=== PATIENT | male | born 1990 | race African-American/Black ===

== ENCOUNTER 2017-04-24 05:22 | Emergency (ER) | payer MEDICAID ==
[~2017-04-24] VITALS: Ht 180.3 cm; Wt 136.0 kg
[~2017-04-24 05:22] MED LIST: ALBU05 IH; ALBU6.7H2 IH; AMLO5TAB88; IBUP-2029 PO
[2017-04-24 06:54] LABS: HEMATOCRIT. 41.9 % (42.0-52.0); HEMOGLOBIN. 14.3 g/dL (14.0-18.0); MEAN CORPUSCULAR HEMOGLOBIN 27.6 pg (28.0-32.0); MEAN CORPUSCULAR VOLUME 80.9 fL (80.0-94.0); MEAN PLATELET VOLUME 9.2 fl (7.4-10.4); PLATELET 170 x1000/uL (130-400); RED BLOOD CELL COUNT 5.19 mill/uL (4.7-6.1); RED CELL DISTRIBUTION WIDTH 13.9 % (11.6-14.6)
[2017-04-24 07:08] LABS: CARBON DIOXIDE 25 mEq/L (21-32); CHLORIDE 109 mEq/L (98-107)
[2017-04-24 07:39] LABS: PLATELET ESTIMATE NORMAL
[2017-04-24 07:51] VITALS: BP 171/132
[2017-04-24] MEDS ORDERED: COLCHICINE 0.6MG TABLET PO ONE (09:45)
[2017-04-24] MEDS ORDERED: COLCHICINE 0.6MG TABLET PO SCH (11:00)
== END 2017-04-24 10:00 | disposition home or self-care (01) ==
LOC: ER 05:22
DX: M10.9 Gout, unspecified (principal); I10 Essential (primary) hypertension; R51 Headache; Z91.14 Patient's other noncompliance with medication regimen
CPT/HCPCS: 36415; 70450; 80053; 85025; 99285; Z7610

== ENCOUNTER 2018-11-27 04:27 | Inpatient (IN) | payer MEDICAID ==
[~2018-11-27] VITALS: Ht 180.3 cm; Wt 51.3 kg
[~2018-11-27 04:27] MED LIST changes: -ALBU6.7H2 IH; +ALBU6.7H9 IH; -AMLO5TAB88; +AMLO5TAB88 PO
[2018-11-27 05:34] LABS: HEMATOCRIT. 44.2 % (42.0-52.0); MEAN CORPUSCULAR HEMOGLOBIN 27.5 pg (28.0-32.0); MEAN CORPUSCULAR VOLUME 81.2 fL (80.0-94.0); MEAN PLATELET VOLUME 8.8 fl (7.4-10.4); PLATELET 186 x1000/uL (130-400); RED BLOOD CELL COUNT 5.45 mill/uL (4.7-6.1); RED CELL DISTRIBUTION WIDTH 14.9 % (11.6-14.6)
[2018-11-27 05:40] LABS: CHLORIDE 106 mEq/L (98-107)
[2018-11-27] MEDS ORDERED: ONDANSETRON HCL 4MG/2ML INJ IV STA (06:06)
[2018-11-27] MEDS ORDERED: MORPHINE SULFATE 4 MG/ML CPJ (NOT FOR IM USE) IV STA (06:06)
[2018-11-27] MEDS ORDERED: ASPIRIN 81MG TABLET PO ONE (06:15)
[2018-11-27] MEDS ORDERED: FUROSEMIDE 20MG/2ML VIAL IVP ONE (06:15)
[2018-11-27] MEDS ORDERED: NITROGLYCERIN OINT 1GM/INCH UDPKT TD ONE (06:15)
[2018-11-27] MEDS ORDERED: ALBUTEROL (0.083%) 2.5MG/3ML NEB HHN ONE (06:30)
[2018-11-27 06:54] LABS: ATYPICAL LYMPHOCYTES 1
[2018-11-27 06:55] LABS: PLATELET ESTIMATE NORMAL
[2018-11-27] MEDS ORDERED: ACETAMINOPHEN 325MG TABLET PO ONE (07:15)
[2018-11-27] MEDS ORDERED: MAGNESIUM/ALUMINUM HYDROXIDE/SIMETHICONE 30ML UDC PO PRN (07:30)
[2018-11-27] MEDS ORDERED: ZOLPIDEM TARTRATE 5MG TABLET PO PRN (07:30)
[2018-11-27] MEDS ORDERED: GUAIFENESIN 200MG/10ML SUGAR FREE UDC PO PRN (07:30)
[2018-11-27] MEDS ORDERED: NA PHOS,M-B/NA PHOS,DI-BA ENEMA 118ML PR PRN (07:30)
[2018-11-27] MEDS ORDERED: DOCUSATE SODIUM 100MG CAPSULE PO PRN (07:30)
[2018-11-27] MEDS ORDERED: LORAZEPAM 0.5MG TABLET PO PRN (07:30)
[2018-11-27] MEDS ORDERED: IPRATROPIUM/ALBUTEROL 0.5-3(2.5)MG/3ML NEB INH PRN (07:30)
[2018-11-27] MEDS ORDERED: ACETAMINOPHEN 325MG TABLET PO PRN (07:30)
[2018-11-27] MEDS ORDERED: ONDANSETRON HCL 4MG/2ML INJ IV PRN (07:30)
[2018-11-27 07:43] LABS: ETHANOL BLOOD < 10 mg/dL
[2018-11-27 07:46] LABS: LDL CHOLESTEROL 55 mg/dL (5-100)
[2018-11-27 07:48] LABS: HDL CHOLESTEROL 37 mg/dL (40-59)
[2018-11-27] MEDS: CLONIDINE 0.1MG TABLET PO PRN ×2 (07:48→13:17)
[2018-11-27] MEDS ORDERED: AMLODIPINE 10MG TABLET PO SCH (08:45)
[2018-11-27] MEDS ORDERED: LISINOPRIL 20MG TABLET PO SCH ×2 (08:45→21:00)
[2018-11-27] MEDS ORDERED: ASPIRIN 325MG EC TABLET PO NR (09:30)
[2018-11-27] MEDS: NITROGLYCERIN 0.4MG TABLET SL SL PRN ×2 (09:41→10:31)
[2018-11-27] MEDS: KETOROLAC 15MG/ML VIAL IV PRN ×3 (11:30→23:30)
[2018-11-27 13:00] VITALS: BP_SYST 136; BP_SYST 138; BP_DIAS 100
[2018-11-27 16:00] VITALS: BP 156/108
[2018-11-27] MEDS: FAMOTIDINE 20MG TABLET PO SCH ×2 (16:10→20:21)
[2018-11-27 19:57] LABS: CREATINE KINASE 53 IU/L (39-308)
[2018-11-27 19:58] LABS: CREATINE KINASE MB FRACTION < 1.0 ng/mL (0.5-3.6)
[2018-11-27 20:00] VITALS: BP 149/99
[2018-11-28] VITALS: BP 154/100
[2018-11-28 04:00] VITALS: BP 186/119
[2018-11-28] MEDS: CLONIDINE 0.1MG TABLET PO PRN (05:00)
[2018-11-28 05:07] VITALS: BP 186/119
[2018-11-28] MEDS: KETOROLAC 15MG/ML VIAL IV PRN (05:07)
[2018-11-28] MEDS ORDERED: AMLODIPINE 10MG TABLET PO SCH (09:00)
[2018-11-28] MEDS ORDERED: ASPIRIN 325MG EC TABLET PO SCH (09:00)
[2018-11-28] MEDS ORDERED: HYDROCHLOROTHIAZIDE 25MG TABLET PO SCH (09:45)
== END 2018-11-28 10:54 | disposition home or self-care (01) | DRG 199 ==
LOC: ER 04:27 → 7WST 06:32 → EDBEDREQTM 06:37 → EDBEDREQ 06:37 → ENRESERV 11:40
PROVIDERS: ADMIT Internal Medicine; ATTEND Internal Medicine
DX: I16.0 Hypertensive urgency (principal); E44.1 Mild protein-calorie malnutrition; R07.89 Other chest pain; E83.51 Hypocalcemia; E66.9 Obesity, unspecified; E83.52 Hypercalcemia; F12.10 Cannabis abuse, uncomplicated; J45.909 Unspecified asthma, uncomplicated; Z91.14 Patient's other noncompliance with medication regimen; Z68.1 Body mass index [BMI] 19.9 or less, adult; I10 Essential (primary) hypertension
CPT/HCPCS: 36415; 71045; 80061; 80320; 82550; 82553; 83036; 83880; 84484; 85379; 93005; 93970; 96374; 96375; 99285; C1893; J1885; J1940; J2270; J2405; J7611; J7620; G0480

== ENCOUNTER 2019-05-03 04:45 | Emergency (ER) | payer MEDICAID ==
[~2019-05-03] VITALS: Ht 180.3 cm; Wt 129.0 kg
[2019-05-03] MEDS ORDERED: LISI10TA5 PO (05:23)
[2019-05-03] MEDS ORDERED: HYDR25TA PO (05:24)
[2019-05-03] MEDS ORDERED: AMLODIPINE 5MG TABLET PO ONE (06:30)
[2019-05-03] MEDS ORDERED: LISINOPRIL 10MG TABLET PO ONE (06:30)
[2019-05-03] MEDS ORDERED: HYDROCHLOROTHIAZIDE 25MG TABLET PO ONE (06:30)
[2019-05-03 07:20] VITALS: BP 186/128
== END 2019-05-03 07:23 | disposition home or self-care (01) ==
LOC: ER 05:55
DX: I10 Essential (primary) hypertension (principal); Z76.0 Encounter for issue of repeat prescription
CPT/HCPCS: 99284

== ENCOUNTER 2019-09-19 03:42 | Emergency (ER) | payer MEDICAID ==
[~2019-09-19] VITALS: Ht 180.3 cm; Wt 131.8 kg
[~2019-09-19 03:42] MED LIST changes: +HYDR25TA PO; +LISI10TA5 PO
[2019-09-19] MEDS ORDERED: HYDROCHLOROTHIAZIDE 25MG TABLET PO ONE (06:15)
[2019-09-19] MEDS ORDERED: LISINOPRIL 10MG TABLET PO ONE (06:15)
[2019-09-19] MEDS ORDERED: AMLODIPINE 5MG TABLET PO ONE (06:30)
[2019-09-19 06:50] VITALS: BP 162/106
== END 2019-09-19 06:52 | disposition home or self-care (01) ==
LOC: ER 03:42
DX: I10 Essential (primary) hypertension (principal); J45.909 Unspecified asthma, uncomplicated; F12.10 Cannabis abuse, uncomplicated; F17.200 Nicotine dependence, unspecified, uncomplicated; Z76.0 Encounter for issue of repeat prescription; Z79.899 Other long term (current) drug therapy
CPT/HCPCS: 99284

== ENCOUNTER 2019-11-20 04:41 | Emergency (ER) | payer MEDICAID ==
[~2019-11-20] VITALS: Ht 170.2 cm; Wt 113.0 kg
[2019-11-20 05:36] VITALS: BP 169/110
== END 2019-11-20 05:37 | disposition home or self-care (01) ==
LOC: ER 04:41
DX: I10 Essential (primary) hypertension (principal); Z76.0 Encounter for issue of repeat prescription; G47.30 Sleep apnea, unspecified; R00.0 Tachycardia, unspecified; F12.10 Cannabis abuse, uncomplicated; Z79.899 Other long term (current) drug therapy
CPT/HCPCS: 99282; 99283

== ENCOUNTER 2020-01-09 04:41 | Emergency (ER) | payer MEDICAID ==
[~2020-01-09] VITALS: Ht 180.3 cm; Wt 177.0 kg
[2020-01-09] MEDS ORDERED: HYDROCHLOROTHIAZIDE 25MG TABLET PO ONE (06:45)
[2020-01-09] MEDS ORDERED: AMLODIPINE 5MG TABLET PO ONE (06:45)
[2020-01-09] MEDS ORDERED: LISINOPRIL 10MG TABLET PO SCH (06:45)
[2020-01-09 07:08] VITALS: BP 165/115
== END 2020-01-09 07:11 | disposition home or self-care (01) ==
LOC: ER 04:41
DX: I10 Essential (primary) hypertension (principal); F12.10 Cannabis abuse, uncomplicated; Z79.899 Other long term (current) drug therapy; Z76.0 Encounter for issue of repeat prescription
CPT/HCPCS: 99284

== ENCOUNTER 2020-07-09 15:59 | Emergency (ER) | payer MEDICAID ==
[~2020-07-09] VITALS: Ht 175.3 cm; Wt 128.0 kg
[2020-07-09 16:09] VITALS: BP 138/87
[2020-07-09] MEDS ORDERED: CEPHALEXIN 250MG CAPSULE PO ONE (17:45)
[2020-07-09] MEDS ORDERED: IBUPROFEN 600MG TABLET PO ONE (17:45)
[2020-07-09] MEDS ORDERED: ALBUTEROL (0.083%) 2.5MG/3ML NEB HHN STA (18:00)
[2020-07-09] MEDS ORDERED: IPRATROPIUM BROMIDE (0.02%) 0.5MG/2.5ML NEB HHN STA (18:00)
== END 2020-07-09 18:30 | disposition home or self-care (01) ==
LOC: ER 15:59
DX: L03.317 Cellulitis of buttock (principal); J45.909 Unspecified asthma, uncomplicated; I10 Essential (primary) hypertension; F12.10 Cannabis abuse, uncomplicated
CPT/HCPCS: 94640; 99283; Z7610

== ENCOUNTER 2022-06-15 00:40 | Emergency (ER) | payer MEDICAID, OTHER ==
[~2022-06-15] VITALS: Ht 180.3 cm; Wt 136.0 kg
[~2022-06-15 00:40] MED LIST changes: +ALBU6.7H3 IH; -ALBU6.7H9 IH; +LISI10TA26 PO; -LISI10TA5 PO
[2022-06-15 01:35] LABS: HEMATOCRIT. 53.5 % (42.0-52.0); MEAN CORPUSCULAR HEMOGLOBIN 28.6 pg (28.0-32.0); MEAN CORPUSCULAR VOLUME 85.2 fL (80.0-94.0); MEAN PLATELET VOLUME 8.1 fl (7.4-10.4); PLATELET 261 x1000/uL (130-400); RED BLOOD CELL COUNT 6.28 mill/uL (4.7-6.1); RED CELL DISTRIBUTION WIDTH 15.3 % (11.6-14.6)
[2022-06-15 01:41] LABS: CHLORIDE 101 mEq/L (98-107)
[2022-06-15 01:53] LABS: ETHANOL BLOOD < 10 mg/dL
[2022-06-15 01:57] LABS: PLATELET ESTIMATE NORMAL
[2022-06-15] MEDS ORDERED: KETOROLAC 30MG/ML VIAL IV ONE (03:30)
[2022-06-15 04:00] VITALS: BP 112/82
== END 2022-06-15 04:00 | disposition home or self-care (01) ==
LOC: ER 00:40
DX: M54.50 Low back pain, unspecified (principal); I11.0 Hypertensive heart disease with heart failure; I50.9 Heart failure, unspecified; R51.9 Headache, unspecified; E11.9 Type 2 diabetes mellitus without complications; Z86.73 Personal history of transient ischemic attack (TIA), and cerebral infarction without residual deficits
CPT/HCPCS: 36415; 71045; 80053; 80320; 83880; 84484; 85025; 93005; 96374; 99285; G0480

== ENCOUNTER 2022-07-18 20:18 | Emergency (ER) | payer MEDICAID, OTHER ==
[~2022-07-18] VITALS: Ht 177.8 cm; Wt 113.0 kg
[2022-07-18] MEDS ORDERED: LIDOCAINE HCL/EPINEPHRINE 1%-EPI 1:100,000 20 ML VIAL INFIL ONE (22:15)
[2022-07-18] MEDS ORDERED: ACETAMINOPHEN 325MG TABLET PO ONE (22:15)
[2022-07-18] MEDS ORDERED: TETANUS, DIPHTHERIA, PERTUSSIS VAC/PF 0.5ML (>10YR OLD) IM ONE (22:15)
[2022-07-18] MEDS ORDERED: BACITRACIN ZINC OINT UDPKT TOP ONE (22:15)
[2022-07-18] MEDS ORDERED: BO1 TP (23:42)
[2022-07-18 23:45] VITALS: BP 142/98
== END 2022-07-19 | disposition home or self-care (01) ==
LOC: ER 20:36
DX: S01.81XA Laceration without foreign body of other part of head, initial encounter (principal); W26.8XXA Contact with other sharp object(s), not elsewhere classified, initial encounter; Y93.89 Activity, other specified; Y92.89 Other specified places as the place of occurrence of the external cause; Y99.8 Other external cause status; I11.0 Hypertensive heart disease with heart failure; I50.9 Heart failure, unspecified; J45.909 Unspecified asthma, uncomplicated; E11.9 Type 2 diabetes mellitus without complications; Z86.73 Personal history of transient ischemic attack (TIA), and cerebral infarction without residual deficits; Z79.899 Other long term (current) drug therapy
CPT/HCPCS: 12013; 90471; 90715; 99283; J3490; Z7610

== ENCOUNTER 2022-07-27 05:03 | Emergency (ER) | payer MEDICAID ==
[~2022-07-27] VITALS: Ht 175.3 cm; Wt 127.0 kg
[~2022-07-27 05:03] MED LIST changes: +BO1 TP
[2022-07-27] MEDS ORDERED: MAGNESIUM 2 G PREMIX 50 ML IV STA (05:34)
[2022-07-27] MEDS ORDERED: IPRATROPIUM BROMIDE (0.02%) 0.5MG/2.5ML NEB HHN STA (05:34)
[2022-07-27] MEDS ORDERED: METHYLPREDNISOLONE SOD SUCC 125 MG/2 ML VIAL IV STA (05:34)
[2022-07-27] MEDS ORDERED: ALBUTEROL (0.083%) 2.5MG/3ML NEB HHN STA (05:34)
[2022-07-27 05:53] LABS: HEMATOCRIT. 42.8 % (42.0-52.0); HEMOGLOBIN. 14.4 g/dL (14.0-18.0); MEAN CORPUSCULAR HEMOGLOBIN 28.2 pg (28.0-32.0); MEAN CORPUSCULAR VOLUME 83.9 fL (80.0-94.0); PLATELET 261 x1000/uL (130-400); RED CELL DISTRIBUTION WIDTH 15.5 % (11.6-14.6)
[2022-07-27 05:57] LABS: CHLORIDE 107 mEq/L (98-107)
[2022-07-27 07:08] LABS: PLATELET ESTIMATE NORMAL
[2022-07-27] MEDS ORDERED: ALBU6.7H3 INH (07:51)
[2022-07-27] MEDS ORDERED: P50 PO (07:51)
[2022-07-27 08:02] VITALS: BP 146/123
== END 2022-07-27 08:30 | disposition home or self-care (01) ==
LOC: ER 05:03
DX: J45.901 Unspecified asthma with (acute) exacerbation (principal); F12.10 Cannabis abuse, uncomplicated; Z20.822 Contact with and (suspected) exposure to COVID-19
CPT/HCPCS: 36415; 71045; 80053; 83880; 84484; 85025; 87426; 87804; 96365; 96374; 99285; C9803; J2930; J3475; Z7610; 94644

== ENCOUNTER 2022-08-29 15:53 | Inpatient (IN) | payer MEDICAID, OTHER ==
[~2022-08-29] VITALS: Ht 180.3 cm; Wt 134.3 kg
[~2022-08-29 15:53] MED LIST changes: +ALBU6.7H3 INH; +P50 PO
[2022-08-29] MEDS ORDERED: ASPIRIN 81MG TABLET PO ONE (16:45)
[2022-08-29 17:07] LABS: HEMATOCRIT. 46.2 % (42.0-52.0); HEMOGLOBIN. 15.3 g/dL (14.0-18.0); MEAN CORPUSCULAR HEMOGLOBIN 27.6 pg (28.0-32.0); MEAN CORPUSCULAR VOLUME 83.4 fL (80.0-94.0); MEAN PLATELET VOLUME 7.9 fl (7.4-10.4); PLATELET 265 x1000/uL (130-400); RED BLOOD CELL COUNT 5.54 mill/uL (4.7-6.1); RED CELL DISTRIBUTION WIDTH 16.1 % (11.6-14.6)
[2022-08-29 17:15] LABS: CHLORIDE 105 mEq/L (98-107)
[2022-08-29 17:35] LABS: PLATELET ESTIMATE NORMAL
[2022-08-29] MEDS ORDERED: FUROSEMIDE 40MG/4ML VIAL IVP NR (18:45)
[2022-08-30] MEDS ORDERED: DEXTROSE 50% WATER 50ML SYRINGE IV PRN (03:45)
[2022-08-30] MEDS ORDERED: DEXT 5%/0.45% NACL 1000ML 1,000 ML IV SCH (03:45)
[2022-08-30 04:00] VITALS: BP 137/92
[2022-08-30 04:07] VITALS: BP 137/92
[2022-08-30] MEDS: PANTOPRAZOLE 40MG DR TABLET PO SCH (07:40)
[2022-08-30] MEDS: BLOOD SUGAR DIAGNOSTIC STRIP TEST SCH ×4 (07:40→20:49)
[2022-08-30 08:00] VITALS: BP 122/97
[2022-08-30] MEDS: INSULIN LISPRO 100 UNITS/ML SUBCUT SCH ×4 (08:10→20:47)
[2022-08-30 12:00] VITALS: BP 144/113
[2022-08-30] MEDS: FUROSEMIDE 40MG/4ML VIAL IVP SCH ×2 (12:02→18:29)
[2022-08-30] MEDS ORDERED: CARVEDILOL 6.25 MG TABLET PO NR (14:30)
[2022-08-30 16:00] VITALS: BP 125/67
[2022-08-30] MEDS: LOSARTAN POTASSIUM 25 MG TABLET PO SCH (16:02)
[2022-08-30 17:05] LABS: HEMATOCRIT. 44.8 % (42.0-52.0); HEMOGLOBIN. 14.9 g/dL (14.0-18.0); MEAN CORPUSCULAR HEMOGLOBIN 27.6 pg (28.0-32.0); MEAN PLATELET VOLUME 8.3 fl (7.4-10.4); PLATELET 259 x1000/uL (130-400); RED BLOOD CELL COUNT 5.41 mill/uL (4.7-6.1); RED CELL DISTRIBUTION WIDTH 16.1 % (11.6-14.6)
[2022-08-30 17:30] LABS: CHLORIDE 104 mEq/L (98-107)
[2022-08-30 20:00] VITALS: BP 141/99
[2022-08-30] MEDS: CARVEDILOL 6.25 MG TABLET PO SCH (20:46)
[2022-08-30 22:26] LABS: NUCLEATED RED BLOOD CELLS 1 /100 WBC; PLATELET ESTIMATE NORMAL
[2022-08-31] VITALS: BP 108/78
[2022-08-31 04:00] VITALS: BP 119/81
[2022-08-31 06:13] LABS: CHLORIDE 104 mEq/L (98-107)
[2022-08-31] MEDS: BLOOD SUGAR DIAGNOSTIC STRIP TEST SCH ×2 (07:40→10:09)
[2022-08-31] MEDS: INSULIN LISPRO 100 UNITS/ML SUBCUT SCH (08:10)
[2022-08-31] MEDS: CARVEDILOL 6.25 MG TABLET PO SCH (10:08)
[2022-08-31] MEDS: LOSARTAN POTASSIUM 25 MG TABLET PO SCH (10:08)
[2022-08-31] MEDS: FUROSEMIDE 40MG/4ML VIAL IVP SCH (10:08)
[2022-08-31] MEDS: PANTOPRAZOLE 40MG DR TABLET PO SCH (10:08)
[2022-08-31] MEDS ORDERED: FUROSEMIDE 40MG/4ML VIAL IVP NR (11:30)
[2022-08-31 14:23] VITALS: BP 119/81
== END 2022-08-31 14:47 | disposition home or self-care (01) | DRG 194 ==
LOC: ER 15:53 → MICUSO 20:23 → 7WST 08-30 03:45
PROVIDERS: ADMIT Internal Medicine Pulmonary Disease; ATTEND Internal Medicine Pulmonary Disease
DX: I11.0 Hypertensive heart disease with heart failure (principal); E44.1 Mild protein-calorie malnutrition; I50.23 Acute on chronic systolic (congestive) heart failure; E11.9 Type 2 diabetes mellitus without complications; Z20.822 Contact with and (suspected) exposure to COVID-19; E66.01 Morbid (severe) obesity due to excess calories; J45.909 Unspecified asthma, uncomplicated; Z68.41 Body mass index [BMI] 40.0-44.9, adult
CPT/HCPCS: 36415; 71045; 80048; 80053; 82962; 83036; 83880; 84484; 85025; 87426; 87804; 93005; 93306; 99285; C9803; J1815; J1940

== ENCOUNTER 2022-08-31 16:41 | Emergency (ER) | payer OTHER ==
[~2022-08-31] VITALS: Ht 172.7 cm; Wt 91.0 kg
[2022-08-31 16:44] VITALS: BP 122/91
== END 2022-08-31 16:57 | disposition home or self-care (01) ==
LOC: ER 16:41
DX: R53.83 Other fatigue (principal); I11.0 Hypertensive heart disease with heart failure; I50.9 Heart failure, unspecified; E11.9 Type 2 diabetes mellitus without complications; J45.909 Unspecified asthma, uncomplicated; Z86.73 Personal history of transient ischemic attack (TIA), and cerebral infarction without residual deficits; Z79.899 Other long term (current) drug therapy; Z79.51 Long term (current) use of inhaled steroids
CPT/HCPCS: 99283

== ENCOUNTER 2022-09-29 14:27 | Emergency (ER) | payer MEDICAID, OTHER ==
[~2022-09-29] VITALS: Ht 175.3 cm; Wt 136.0 kg
[2022-09-29 16:49] LABS: CLARITY URINE TURBID (CLEAR); COLOR URINE DARK YELLOW (YELLOW); KETONES URINE NEGATIVE (NEGATIVE); LEUKOCYTE ESTERASE URINE 3+ (NEGATIVE); NITRITE URINE NEGATIVE (NEGATIVE); OCCULT BLOOD URINE NEGATIVE (NEGATIVE); PH URINE >=9.0 (4.5-8.0); PROTEIN URINE 2+ (NEGATIVE); SPECIFIC GRAVITY URINE 1.022 (1.005-1.030)
[2022-09-29] MEDS ORDERED: LIDOCAINE HCL 1% 20ML VIAL (Pyxis) INJ INFIL STA (18:03)
[2022-09-29 18:36] LABS: HEMATOCRIT. 43.4 % (42.0-52.0); HEMOGLOBIN. 14.1 g/dL (14.0-18.0); MEAN CORPUSCULAR HEMOGLOBIN 27.4 pg (28.0-32.0); MEAN CORPUSCULAR VOLUME 84.1 fL (80.0-94.0); PLATELET 355 x1000/uL (130-400); RED BLOOD CELL COUNT 5.15 mill/uL (4.7-6.1); RED CELL DISTRIBUTION WIDTH 15.7 % (11.6-14.6)
[2022-09-29 18:43] LABS: CHLORIDE 101 mEq/L (98-107)
[2022-09-29 18:44] LABS: INR 1.2; PROTHROMBIN TIME 13.1 sec (9.6-11.0)
[2022-09-29] MEDS ORDERED: KETOROLAC 60MG/2ML VIAL IM ONE (19:15)
[2022-09-29] MEDS ORDERED: AZITHROMYCIN 500 MG TABLET PO ONE (19:15)
[2022-09-29] MEDS ORDERED: CEFTRIAXONE SODIUM 500 MG/VIAL IM ONE (19:15)
[2022-09-29 19:19] LABS: PLATELET ESTIMATE NORMAL
[2022-09-29 20:09] VITALS: BP 124/87
[2022-10-03 05:11] LABS: NEISSERIA GONORRHOEAE NAA Negative (Negative)
== END 2022-09-29 22:10 | disposition home or self-care (01) ==
LOC: ER 14:34
DX: M25.562 Pain in left knee (principal); M79.671 Pain in right foot; M79.672 Pain in left foot; I11.0 Hypertensive heart disease with heart failure; I50.9 Heart failure, unspecified; J45.909 Unspecified asthma, uncomplicated; I63.9 Cerebral infarction, unspecified; F12.10 Cannabis abuse, uncomplicated; Z79.899 Other long term (current) drug therapy
CPT/HCPCS: 36415; 73560; 80053; 81003; 85025; 85610; 87491; 87591; 96372; 99284; J0696; J1885; J3490; Z7610

== ENCOUNTER 2023-05-04 02:52 | Emergency (ER) | payer MEDICARE, MEDICAID ==
[~2023-05-04] VITALS: Ht 175.3 cm; Wt 160.0 kg
[2023-05-04 02:53] VITALS: BP 154/86; PULSE 66; RESP 20; TEMP 98.4; O2SAT 98
== END 2023-05-04 03:37 | disposition left against medical advice (07) ==
LOC: ER 03:29
DX: R07.89 Other chest pain (principal); R06.02 Shortness of breath; I11.0 Hypertensive heart disease with heart failure; I50.9 Heart failure, unspecified; E11.9 Type 2 diabetes mellitus without complications; J45.909 Unspecified asthma, uncomplicated; F12.10 Cannabis abuse, uncomplicated; Z86.73 Personal history of transient ischemic attack (TIA), and cerebral infarction without residual deficits
CPT/HCPCS: 93005; 99283; Z7610 ×2

== ENCOUNTER 2024-02-05 10:10 | Emergency (ER) | payer MEDICARE, MEDICAID ==
[~2024-02-05] VITALS: Ht 175.3 cm; Wt 127.0 kg
[2024-02-05 10:11] VITALS: BP 120/86; PULSE 96; RESP 14; TEMP 98.4; O2SAT 98
== END 2024-02-05 10:43 | disposition left against medical advice (07) ==
LOC: ER 10:10
DX: M79.10 Myalgia, unspecified site (principal); Z53.21 Procedure and treatment not carried out due to patient leaving prior to being seen by health care provider